=== PATIENT | female | born 1990 | race Caucasian/White ===

== ENCOUNTER 2023-01-14 23:18 | Inpatient (IN) | payer OTHER ==
[2023-01-14] MEDS ORDERED: hydrALAZINE 20 MG/ML VIAL SLOW IVP PRN (23:51)
[2023-01-15] MEDS ORDERED: fentaNYL/Ropivacaine Epidural 100 ML ONE (00:19)
[2023-01-15 00:29] VITALS: BMI 36.1
[2023-01-15] MEDS ORDERED: Promethazine HCl 25 MG/ML VIAL IM PRN ×3 (00:42→18:40)
[2023-01-15] MEDS ORDERED: Ondansetron PF 4 MG/2 ML Vial IVP PRN ×2 (00:42→02:13)
[2023-01-15] MEDS ORDERED: hydrALAZINE 20 MG/ML VIAL SLOW IVP PRN (00:42)
[2023-01-15] MEDS ORDERED: Methylergonovine 0.2 MG/ML VIAL IM PRN (00:42)
[2023-01-15] MEDS ORDERED: Tranexamic Acid 1,000 MG/10 ML VIAL IVP PRN (00:42)
[2023-01-15] MEDS ORDERED: Lidocaine 1% (PF) 30 ML VIAL SC PRN (00:42)
[2023-01-15] MEDS ORDERED: Misoprostol 200 MCG TAB PR PRN (00:42)
[2023-01-15] MEDS ORDERED: Ibuprofen 800 MG TAB PO PRN (00:42)
[2023-01-15] MEDS ORDERED: NS w/ Oxytocin 30 units 500 ML IV SCH (00:45)
[2023-01-15] MEDS ORDERED: Penicillin G Potassium 5 MILL.UNITS in Sodium Chloride 0.9% 100 ML IVPB SCH (00:45)
[2023-01-15] MEDS ORDERED: Ventolin HFA Inhaler 60 PUFF INHALER INH PRN ×2 (00:57→15:16)
[2023-01-15 01:06] LABS: Mean Corpuscular HGB CONC 35.5 g/dL (32.0-36.0); Mean Corpuscular Hemoglobin 29.5 pg (27.0-33.0); Mean Platelet Volume 10.6 fl (7.4-10.4); Platelet Count 271 10x3/uL (150-450); RBC Distribution Width 15.6 % (11.5-14.5); Red Blood Cell (RBC) Count 4.07 10x6/uL (3.90-5.03); White Blood Cell (WBC) Count 9.2 10x3/uL (3.5-10.5)
[2023-01-15 01:31] LABS: HBSAg Index 0.22 S/CO (0-0.99); Hep B Surf Ag - L&D Non-Reactive S/CO (NonReactive)
[2023-01-15] MEDS ORDERED: Moisturizing Cream (Eucerin) 113 GM JAR TOP PRN ×2 (02:13→18:40)
[2023-01-15] MEDS ORDERED: Acetaminophen 325 MG TAB PO PRN (02:13)
[2023-01-15] MEDS ORDERED: ePHEDrine Sulfate 50 MG/10 ML VIAL SLOW IVP PRN (02:13)
[2023-01-15] MEDS ORDERED: Lactated Ringer's 500 ML IV PRN (02:13)
[2023-01-15] MEDS ORDERED: Naloxone HCl 0.4 mg/ml Vial IVP PRN ×4 (02:13→18:40)
[2023-01-15] MEDS ORDERED: Communication Order-Pharmacy FS SCH ×2 (02:15→18:45)
[2023-01-15] MEDS ORDERED: fentaNYL 2 mcg/Ropivacaine 0.2% Epidural 100 ML CADD EPIDURAL SCH (02:15)
[2023-01-15] MEDS: diphenhydrAMINE 50 MG/ML VIAL IVP PRN ×4 (04:30→20:48)
[2023-01-15] MEDS: Penicillin G 2.5 MILL.units 2.5 MILL.UNITS in Premix Bag 1 BAG IVPB SCH ×5 (05:35→22:45)
[2023-01-15 05:38] LABS: Amphetamine Not Detected (NotDetected); Barbiturates Screen Detected (NotDetected); Benzodiazepine Screen Not Detected (NotDetected); Cocaine Metabolite Screen Not Detected (NotDetected); Methadone Not Detected (NotDetected); Methamphetamine Not Detected (NotDetected); Opiate Screen Not Detected (NotDetected); Oxycodone Screen Not Detected (NotDetected); Phencyclidine (PCP) Not Detected (NotDetected); THC/Cannabinoid Screen Detected (NotDetected); Tricyclic Screen Not Detected (NotDetected)
[2023-01-15] MEDS ORDERED: Ferrous Sulfate 325 MG TAB PO SCH (08:00)
[2023-01-15] MEDS ORDERED: Prenatal Vitamin 1 TAB PO SCH (09:00)
[2023-01-15] MEDS: Mometasone/Formoterol 60 PUFF AER INH SCH ×2 (09:57→19:50)
[2023-01-15] MEDS: Lactated Ringer's 1,000 ML IV SCH ×2 (09:59→12:45)
[2023-01-15] MEDS: Famotidine 20 MG TAB PO SCH ×2 (11:27→23:26)
[2023-01-15] MEDS ORDERED: diphenhydrAMINE 50 MG/ML VIAL IVP SCH (15:30)
[2023-01-15] MEDS ORDERED: Albuterol 200 PUFF (6.7GM INHALER) INH PRN (15:33)
[2023-01-15] MEDS ORDERED: Azithromycin 500 MG in Sodium Chloride 0.9% 250 ML 250 ML IVPB SCH (16:15)
[2023-01-15] MEDS ORDERED: Famotidine/PF 20 mg/2ml Vial SLOW IVP PRN (16:15)
[2023-01-15] MEDS ORDERED: CEFAZOLIN 2 GM in Sodium Chloride 0.9% 100 ML IVPB SCH (16:15)
[2023-01-15] MEDS ORDERED: Bicitra 30 ML UDCUP PO PRN (16:15)
[2023-01-15] MEDS ORDERED: Chloroprocaine 3% PF 20 ML VIAL ONE (16:19)
[2023-01-15] MEDS ORDERED: Morphine PF 10 MG/10 ML VIAL ONE (16:24)
[2023-01-15] MEDS ORDERED: PHENYLEPHRINE-NS 100 MCG/ML 10 ML SYRINGE ONE ×2 (16:35→17:01)
[2023-01-15] MEDS ORDERED: Lidocaine 2% MPF 10 ML AMP (For Epidural Use) ONE (16:40)
[2023-01-15] MEDS ORDERED: Bupivacaine 0.25% HCL 30 ML VIAL ONE (16:43)
[2023-01-15] MEDS ORDERED: Metoclopramide HCl 10 MG/2 ML VIAL ONE (16:51)
[2023-01-15] MEDS ORDERED: Ketorolac Tromethamine 30 MG/ML VIAL ONE (16:52)
[2023-01-15] MEDS ORDERED: Ketamine 50 MG/ML (10ML VIAL) ONE (16:58)
[2023-01-15 17:07] LABS: RapidComm Collect By CBN
[2023-01-15 17:08] LABS: RapidComm Collect By CBN; pH (Cord, venous) 7.309 (7.250-7.350)
[2023-01-15] MEDS ORDERED: Midazolam HCl 2 mg/2 ml Vial ONE (17:16)
[2023-01-15] MEDS ORDERED: Fentanyl 250 MCG/5 ML VIAL ONE (17:22)
[2023-01-15] MEDS ORDERED: fentaNYL 50 mcg/mL 1 mL Vial ONE ×2 (17:22→20:49)
[2023-01-15] MEDS ORDERED: Oxytocin 10 UNITS/ML VIAL ONE (17:34)
[2023-01-15] MEDS ORDERED: PROPOFOL 20 ML ONE (17:37)
[2023-01-15] MEDS ORDERED: Boostrix 0.5 ML (Tdap) VIAL (>/=7 yrs of age) IM ONE (18:14)
[2023-01-15] MEDS ORDERED: Fentanyl 100 MCG/2 ML VIAL SLOW IVP PRN (18:40)
[2023-01-15] MEDS ORDERED: Promethazine HCl 25 MG SUPP PR PRN (18:40)
[2023-01-15] MEDS ORDERED: Ondansetron HCl/PF 4 MG/2 ML Vial IVP PRN (18:40)
[2023-01-15] MEDS ORDERED: Meperidine HCl/PF 25 MG/ML VIAL SLOW IVP PRN (18:40)
[2023-01-15] MEDS ORDERED: Naloxone HCl 0.4 mg/ml Vial IV PRN (18:40)
[2023-01-15] MEDS ORDERED: Ketorolac Tromethamine 30 MG/ML VIAL IVP SCH (18:45)
[2023-01-15 20:16] LABS: D-Dimer Test 6.97 mg/L FEU (0.19-0.50); INR-International Normal Ratio 0.9; PTT 27.4 sec (22.0-33.0); Prothrombin Time 10.1 sec (9.5-12.1)
[2023-01-15] MEDS ORDERED: Simethicone Chewable 80 MG TAB PO PRN (20:56)
[2023-01-15] MEDS ORDERED: fentaNYL 50 mcg/mL 1 mL Vial SLOW IVP PRN (20:56)
[2023-01-15] MEDS: Ketorolac Tromethamine 30 MG/ML VIAL IVP PRN (23:27)
[2023-01-16] MEDS ORDERED: HYDROcodone/Acetaminophen 5/325 mg Tablet PO PRN ×2 (02:30→07:47)
[2023-01-16] MEDS: Lactated Ringer's 1,000 ML IV SCH ×2 (02:34→05:34)
[2023-01-16] MEDS: Penicillin G 2.5 MILL.units 2.5 MILL.UNITS in Premix Bag 1 BAG IVPB SCH ×2 (02:35→06:19)
[2023-01-16 03:57] LABS: Hemoglobin 8.7 g/dL (12.0-15.5); Mean Corpuscular HGB CONC 35.5 g/dL (32.0-36.0); Mean Corpuscular Hemoglobin 29.9 pg (27.0-33.0); Mean Corpuscular Volume 84.2 fl (81.6-98.3); Mean Platelet Volume 10.4 fl (7.4-10.4); Platelet Count 216 10x3/uL (150-450); RBC Distribution Width 15.3 % (11.5-14.5); Red Blood Cell (RBC) Count 2.91 10x6/uL (3.90-5.03); White Blood Cell (WBC) Count 14.7 10x3/uL (3.5-10.5)
[2023-01-16] MEDS: diphenhydrAMINE 50 MG/ML VIAL IVP PRN (04:04)
[2023-01-16] MEDS: Ketorolac Tromethamine 30 MG/ML VIAL IVP PRN (05:37)
[2023-01-16] MEDS: Mometasone/Formoterol 60 PUFF AER INH SCH (05:39)
[2023-01-16] MEDS ORDERED: Acetaminophen 325 MG TAB PO PRN (07:47)
[2023-01-16] MEDS ORDERED: Misoprostol 200 MCG TAB PR PRN (07:47)
[2023-01-16] MEDS ORDERED: Bisacodyl 10 MG SUPP PR PRN (07:47)
[2023-01-16] MEDS ORDERED: Lanolin Ointment 7 GM TUBE TOP PRN (07:47)
[2023-01-16] MEDS ORDERED: NS w/ Oxytocin 30 units 500 ML IV SCH (07:47)
[2023-01-16] MEDS ORDERED: Lactated Ringer's 1,000 ML IV SCH (07:47)
[2023-01-16] MEDS ORDERED: diphenhydrAMINE 25 MG CAP PO PRN (07:47)
[2023-01-16] MEDS: HYDROcodone/Acetaminophen 5/325 mg Tablet PO PRN ×3 (08:31→17:05)
[2023-01-16] MEDS: Prenatal Vitamin 1 TAB PO SCH (08:31)
[2023-01-16] MEDS: Docusate 100 MG CAP PO SCH ×2 (08:31→21:28)
[2023-01-16] MEDS: Simethicone Chewable 80 MG TAB PO SCH ×4 (08:31→21:28)
[2023-01-16] MEDS: Ferrous Sulfate 325 MG TAB PO SCH ×2 (08:31→21:28)
[2023-01-16] MEDS ORDERED: ePHEDrine Sulfate 50 MG/10 ML VIAL ONE (09:00)
[2023-01-16] MEDS ORDERED: Bupivacaine 0.25% HCL 30 ML VIAL ONE (09:00)
[2023-01-16] MEDS: Ibuprofen 800 MG TAB PO SCH ×2 (13:21→21:28)
[2023-01-17] MEDS: HYDROcodone/Acetaminophen 5/325 mg Tablet PO PRN ×3 (03:58→19:24)
[2023-01-17] MEDS: Simethicone Chewable 80 MG TAB PO SCH ×5 (05:42→21:42)
[2023-01-17] MEDS: Ibuprofen 800 MG TAB PO SCH ×3 (05:44→21:42)
[2023-01-17] MEDS: Ferrous Sulfate 325 MG TAB PO SCH ×2 (09:42→21:42)
[2023-01-17] MEDS: Docusate 100 MG CAP PO SCH ×2 (09:42→21:41)
[2023-01-17] MEDS: Prenatal Vitamin 1 TAB PO SCH (09:42)
[2023-01-17] MEDS: guaiFENesin ER 600 MG TAB PO SCH (10:11)
[2023-01-17] MEDS: Polyethylene Glycol 3350 17 GM Packet PO SCH (10:11)
[2023-01-17 11:29] LABS: HBSAg Index 0.18 S/CO (0-0.99); HIV (1/2) Antibody/Antigen Non-Reactive (NonReactive); HIV 1/2 INDEX 0.11 S/CO (<1.00); Hep B Surf Ag - L&D Non-Reactive S/CO (NonReactive)
[2023-01-17 13:59] LABS: Syphilis Antibody Nonreactive (Nonreactive); Syphilis Antibody Index 0.04 S/CO (<1.00 Non-Reactive)
[2023-01-17 14:01] LABS: Ref Lab Test Ordered Barbiturates Conf UR; Reference Lab Name LABCORP
[2023-01-17 15:30] LABS: Hep C IgG Ab Non-Reactive S/CO (NonReactive); Hep C Index 0.07 S/CO (0-0.79)
[2023-01-18] MEDS: guaiFENesin ER 600 MG TAB PO SCH ×2 (01:51→09:00)
[2023-01-18] MEDS: HYDROcodone/Acetaminophen 5/325 mg Tablet PO PRN ×3 (03:48→13:09)
[2023-01-18] MEDS: Ibuprofen 800 MG TAB PO SCH (05:45)
[2023-01-18] MEDS: Simethicone Chewable 80 MG TAB PO SCH ×3 (05:46→09:00)
[2023-01-18 08:12] VITALS: BP 111/68; TEMP 98
[2023-01-18] MEDS: Prenatal Vitamin 1 TAB PO SCH (09:00)
[2023-01-18] MEDS: Ferrous Sulfate 325 MG TAB PO SCH (09:00)
[2023-01-18] MEDS: Docusate 100 MG CAP PO SCH (09:00)
[2023-01-18] MEDS: Polyethylene Glycol 3350 17 GM Packet PO SCH (09:00)
== END 2023-01-18 14:50 | disposition home or self-care (01) | DRG 787 ==
LOC: CSHLD/OP 23:18 → CSHLD 01-15 00:32 → CSHPP 01-15 21:35
PROVIDERS: ADMIT Student in an Organized Health Care Education/Training Program; ATTEND Student in an Organized Health Care Education/Training Program
PROC: 10D00Z1 Extraction of Products of Conception, Low, Open Approach (ICD-10-PCS; principal; 2023-01-15)
PROC: 10H07YZ Insertion of Other Device into Products of Conception, Via Natural or Artificial Opening (ICD-10-PCS; 2023-01-15)
DX: O42.02 Full-term premature rupture of membranes, onset of labor within 24 hours of rupture (principal); D62 Acute posthemorrhagic anemia; O72.1 Other immediate postpartum hemorrhage; E66.9 Obesity, unspecified; O99.214 Obesity complicating childbirth; J45.909 Unspecified asthma, uncomplicated; O99.52 Diseases of the respiratory system complicating childbirth; K21.9 Gastro-esophageal reflux disease without esophagitis; O99.62 Diseases of the digestive system complicating childbirth; O32.8XX0 Maternal care for other malpresentation of fetus, not applicable or unspecified; O90.81 Anemia of the puerperium; O76 Abnormality in fetal heart rate and rhythm complicating labor and delivery; O62.4 Hypertonic, incoordinate, and prolonged uterine contractions; Z3A.39 39 weeks gestation of pregnancy; Z79.51 Long term (current) use of inhaled steroids; Z37.0 Single live birth; Z79.899 Other long term (current) drug therapy
CPT/HCPCS: 36415; 51702; 80306; 82805; 85027; 85049; 85300; 85362; 85379; 85384; 85610; 85730; 86780; 86850; 86900; 86901; 87340; 94664; 99285; J1200; J1885; J2210; J2250; J2274; J2401; J2540; J2590; J2704; J2765; J3010; J3490; J7120; S0020